=== PATIENT | male | born 1955 ===

== ENCOUNTER 2017-10-02 06:11 | Day surgery (SDC) | payer MEDICAID ==
--- NOTE | 2017-09-30 12:27 | Pre-Procedure Note/Attestation ---
Pre-Procedure Note/Attestation Complete Prior to Procedure Planned Procedure: right Procedure Narrative: phacpo with IOL, OD Indications for Procedure Pre-Operative Diagnosis: cataract Attestation I attest that I discussed the nature of the procedure; its benefits; risks and complications; and alternatives (and the risks and benefits of such alternatives ), prior to the procedure, with the patient (or the patient's legal customer contact representative). I attest that, if there was a reasonable possibility of needing a blood transfusion, the patient (or the patient's legal customer contact representative) was given the [facility] standardized written summary, pursuant to the Stef Esvin Blood Safety Act ([place] Health and Safety Code # 1645, as amended). I attest that I re-evaluated the patient just prior to the surgery and that there has been no change in the patient's H&P, except as documented below: RASHAAD LUCERO Sep 30, 2017 12:27
--- NOTE | 2017-09-30 12:29 | Opthalmology H&P ---
Ophthalmology H&P H&P Chief Complaint: decreased vision in right eye HPI Vision Affects Ability to: read, focus/use eyes together HPI Narrative blurry vision Exam Visual Acuity: OD: 20/200 OS: 2/200 Tension: OD: 13 OS: 13 Eye Exam: normal OU: external exam, palpebral fissure-width, marginal reflex distance, levator function, corneas, anterior chambers, findings: lens - cortical OU, fundus exam - npdr with ME Assessment/Plan Diagnosis: (1) Cataract Treatment Plan: cataract extraction w/ lens implant Goals of Treatment: improvement of vision, enhance quality of life Attestation Attestation The risks and benefits of the surgery as well as alternative procedures were explained to the patient in detail. RASHAAD LUCERO Sep 30, 2017 12:28
[~2017-10-02] VITALS: Ht 162.6 cm; Wt 65.8 kg
[2017-10-02] VITALS (8 sets, daily range): BP systolic 124–139; BP diastolic 81–90
[2017-10-02] MEDS ORDERED: Lidocaine 4% Amp ONE (06:35)
[2017-10-02] MEDS ORDERED: Povidone-Iodine 5% opth solution ONE (06:35)
[2017-10-02] MEDS ORDERED: EPINEPHrine 1mg/1ml Amp ONE ×2 (06:35→07:30)
[2017-10-02] MEDS ORDERED: Pilocarpine 2% Opth 15ml Soln ONE (06:36)
[2017-10-02] MEDS ORDERED: BSS 15ml BTL ONE ×2 (06:36→06:37)
[2017-10-02] MEDS ORDERED: Sodium Hyaluronate 14 mg/ml 0.85ml ONE ×2 (06:36→09:43)
[2017-10-02] MEDS ORDERED: Lidocaine 1% MPF 10mg/ml 5ml ONE (06:37)
[2017-10-02] MEDS ORDERED: Bupivacaine 0.75% 30ml vial INJ ONE (06:37)
[2017-10-02] MEDS ORDERED: Carbachol 0.01% Op Soln 1.5ml vial ONE (06:50)
[2017-10-02] MEDS ORDERED: acetaZOLAMIDE 500mg Inj ONE (06:50)
[2017-10-02] MEDS ORDERED: Ketorolac Tromethamine Opth 5ml Soln RIGHT EYE SCH (07:00)
[2017-10-02] MEDS ORDERED: Akten 3.5% 1ml Btl RIGHT EYE ONE (07:00)
[2017-10-02] MEDS: Tobramycin Op Soln 0.3% 5ml RIGHT EYE SCH ×3 (07:25→07:43)
[2017-10-02] MEDS: Tropicamide 1% Opth 15ml Soln RIGHT EYE SCH ×3 (07:25→07:43)
[2017-10-02] MEDS: Phenylephrine 10% Opth Soln 5ml RIGHT EYE SCH ×3 (07:25→07:43)
[2017-10-02] MEDS: Cyclopentolate 1% Opth Sol 2ml RIGHT EYE SCH ×3 (07:25→07:42)
[2017-10-02] MEDS ORDERED: Dexamethasone 4mg/ml vial ONE (07:30)
[2017-10-02] MEDS ORDERED: fentaNYL 100 mcg/2 mL IV ONE (07:30)
[2017-10-02] MEDS ORDERED: Propofol 200mg/20ml IV ONE (07:30)
[2017-10-02] MEDS ORDERED: Midazolam 2mg/2ml Inj ONE (07:30)
[2017-10-02] MEDS ORDERED: BSS 500ml btl ONE (07:30)
[2017-10-02] MEDS ORDERED: Maxitrol Opth Oint 3.5gm ONE (07:30)
[2017-10-02] MEDS ORDERED: Sterile Water Irrig 1000ml IRRIG ONE (07:30)
[2017-10-02] MEDS ORDERED: LR 1000ml ONE (07:30)
[2017-10-02] MEDS ORDERED: Pred Forte 1% Opth Susp 1ml ONE (07:30)
[2017-10-02] MEDS ORDERED: NS Irrig 1000ml ONE (07:30)
[2017-10-02] MEDS ORDERED: ASPIRIN-LOW81 MG ORAL (07:32)
[2017-10-02] MEDS ORDERED: OMEPRAZOLE20 M3 ORAL (07:39)
[2017-10-02] MEDS ORDERED: GABAPENTIN300 MG ORAL (07:39)
[2017-10-02] MEDS ORDERED: SIMVASTATIN20 MG ORAL (07:39)
[2017-10-02] MEDS ORDERED: TOUJEO SOL300 UNIT/1 SQ (07:39)
[2017-10-02] MEDS ORDERED: LISINOPRIL2.5 MG ORAL (07:39)
[2017-10-02] MEDS ORDERED: LR 1000ml 1,000 ML IVLG SCH (08:21)
--- NOTE | 2017-10-02 08:24 | Anethesia Preoperative Eval ---
Anesthesia Pre-op PMH/ROS General Date of Evaluation: Oct 02, 2017 Time of Evaluation: 07:30 Anesthesiologist: darling ASA Score: ASA 2 Mallampati Score Class I : Soft palate, uvula, fauces, pillars visible Class II: Soft palate, uvula, fauces visible Class III: Soft palate, base of uvula visible Class IV: Only hard plate visible Mallampati Classification: Class II Surgeon: Buffy Diagnosis: Right Cataract Surgical Procedure: Extraction IOL Anesthesia History: none Family History: no anesthesia problems Allergies: Coded Allergies: No Known Allergies (Unverified , 09/30/17) Medications: see eMAR Anesthesia Pre-op Phys. Exam Physician Exam Last Vital Signs Date Time Temp Pulse Resp B/P (MAP) Pulse Ox O2 Delivery O2 Flow Rate FiO2 10/02/17 07:49 98.1 85 20 139/89 98 Room Air Constitutional: NAD Neurologic: CN 2-12 intact Cardiovascular: RRR Respiratory: CTA Gastrointestinal: S/NT/ND Airway Exam Mallampati Score: Class II MO: full ROM: full Teeth: intact Anesthesia Pre-op A/P Risk Assessment & Plan Plan: GA Status Change Before Surgery: No Pre-Antibiotics Given Within 1 Hr of Incision: Kwan Mo M.D. Oct 02, 2017 08:24
--- NOTE | 2017-10-02 08:25 | Immediate Post-Op Evaluation ---
Immediate Post-Op Evalulation Immediate Post-Op Evalulation Procedure: ight Eye Cataact Exraction + IOL Date of Evaluation: Oct 02, 2017 Time of Evaluation: 09:00 IV Fluids: 500 Blood Products: 0 Estimated Blood Loss: 0 Urinary Output: 0 Blood Pressure Systolic: 134 Blood Pressure Diastolic: 88 Pulse Rate: 80 Respiratory Rate: 16 O2 Sat by Pulse Oximetry: 99 Temperature (Fahrenheit): 98 Pain Score (1-10): 0 Nausea: No Vomiting: No Patient Status: awake, patent Hydration Status: adequate Given Within 1 Hr of Incision: Kwan Mo M.D. Oct 02, 2017 08:25
[2017-10-02] MEDS ORDERED: DiphenhydrAMINE 50mg/ml Inj IVP PRN (08:30)
[2017-10-02] MEDS ORDERED: Morphine Sulfate 2mg/ml Inj IVP PRN (08:30)
[2017-10-02] MEDS ORDERED: fentaNYL 100 mcg/2 mL IV PRN (08:30)
[2017-10-02] MEDS ORDERED: Midazolam 2mg/2ml Inj IVP PRN (08:30)
[2017-10-02] MEDS ORDERED: Hydromorphone 0.5mg/0.5ml inj IVP PRN (08:30)
[2017-10-02] MEDS ORDERED: Ketorolac 30mg Inj IV PRN (08:30)
[2017-10-02] MEDS ORDERED: Metoclopramide 10mg/2ml Inj IVP PRN (08:30)
--- NOTE | 2017-10-03 09:55 | Brief Operative Note ---
Immediate Post Operative Note Operative Note Chief Complaint: blurry vision Pre-op Diagnosis: cataract, OD Procedure: phaco withn ioL, od Post-op Diagnosis: pSEUDOPHKIA Post-op Diagnosis: same as pre-op Findings: consistent w/pre-op dx studies Surgeon: NIC Anesthesiologist: Parish Anesthesia: MAC Specimen: none Complications: none Condition: stable Fluids: LR Estimated Blood Loss: none Drains: none Implant(s) used?: Yes RASHAAD LUCERO Oct 03, 2017 09:55
--- NOTE | 2017-10-03 09:57 | Operative Note - PDOC ---
Operative Note Operative Note Date of Operation/Procedure: Oct 02, 2017 Chief Complaint: blurry vision Pre-op Diagnosis: cataract, OD Procedure: phaco withn ioL, od Post-op Diagnosis: pSEUDOPHKIA Post-op Diagnosis: same as pre-op Operative Findings: consistent w/pre-op dx studies Surgeon: NIC Anesthesiologist: Parish Anesthesia: MAC Specimen: none Complications: none Condition: stable Fluids: LR Estimated Blood Loss: none Drains: none Implant(s) used?: Yes Indications for Procedure cataract Description of Procedure This patient has been complaining visually significant cataract in the affected eye with the best corrected visual acuity under moderate glare conditions worse. The patient complains of difficulties with glare in performing activities of daily living and wants to manage personal affairs with comfort and accuracy and see well enough to move with safety at home and outdoors. The risks, benefits and alternatives of the procedure were discussed with the patient in the office prior to scheduling surgery. All questions from the patient were answered after the surgical procedure was explained in detail. The risks of the procedure as explained to the patient include, but are not limited to, pain, infection, bleeding, loss of vision, retinal detachment, need for further surgery, loss of lens nucleus, double vision, etc. Alternative procedures were discussed which include, to do nothing or seek a second opinion. Informed consent for this procedure was obtained from the patient. The patient was referred to a primary care physician for a cardiopulmonary clearance prior to surgery, after proper evaluation was done patient was properly scheduled for outpatient surgery. The patient was brought to the operating room where the anesthesiologist established I.V. lines and cardiac monitoring leads. Mild intravenous sedation was administered. The patient was then prepared with a 5% solution of povidone -iodine to the conjunctival fornix and lashes, and a 5% solution of povidone- iodine to the lids and periorbital skin. The patient was then draped in the usual sterile fashion. A lid speculum was then placed in the operative eye. A keratome blade was then used to create a biplanar incision into the anterior chamber. Viscoelastics was then instilled into the anterior chamber. A capsulorrhexis was then fashioned with an utrata forceps followed by a BSS and a cannula were then used to hydrodissect and hydro delineate the lens. Paracentesis incision was made at 3 o'clock with sharp blade. The phacoemulsification unit, after being properly adjusted and tested, was then used to emulsify the nucleus followed by aspiration with the irrigation of residual corticla material with aspiration unit. Healon was then instilled into the anterior chamber. The corneal wound was then enlarged to the size of the optic with the corazon keratome blade. The intraocular lens was then inspected for right power and size and thought to be satisfactory. Then the lens was gently placed in the capsular bag. Positioning within the capsular bag was confirmed by direct visualization. Optic centration was accomplished with a Sinskey hook. Viscoelastics was removed from the anterior chamber using the irrigation and aspiration unit. The corneal wound was then tested for leaks and none were found. The lid speculum were then removed. Sponge and needle counts were correct. An eye patch and shield were placed over the operative eye. The patient was taken to the recovery room in stable condition. There were no complications. The patient tolerated the procedure well. The patient was then transferred to the ambulatory surgery unit in stable and satisfactory condition , was given detailed written instructions and asked to follow up in the office the next day. Brett WALLACE JAMES Oct 03, 2017 09:57
== END 2017-10-02 09:45 | disposition home or self-care (01) ==
LOC: SUR 06:11
DX: H26.9 Unspecified cataract (principal); I10 Essential (primary) hypertension; I25.10 Atherosclerotic heart disease of native coronary artery without angina pectoris; E11.40 Type 2 diabetes mellitus with diabetic neuropathy, unspecified
CPT/HCPCS: 66984; 82962; J0171; J1100; J2250; J2704; J3010; J3370; J7120; V2632; Z7512; 94003; 94150

== ENCOUNTER 2017-12-12 05:43 | Day surgery (SDC) | payer MEDICAID ==
--- NOTE | 2017-12-11 15:05 | Pre-Procedure Note/Attestation ---
Pre-Procedure Note/Attestation Complete Prior to Procedure Planned Procedure: left Procedure Narrative: phaco with IOL Indications for Procedure Pre-Operative Diagnosis: cataract Attestation I attest that I discussed the nature of the procedure; its benefits; risks and complications; and alternatives (and the risks and benefits of such alternatives ), prior to the procedure, with the patient (or the patient's legal rental sales representative). I attest that, if there was a reasonable possibility of needing a blood transfusion, the patient (or the patient's legal rental sales representative) was given the [facility] standardized written summary, pursuant to the Stef Nowata Blood Safety Act ([place] Health and Safety Code # 1645, as amended). I attest that I re-evaluated the patient just prior to the surgery and that there has been no change in the patient's H&P, except as documented below: RASHAAD LUCERO Dec 11, 2017 15:05
--- NOTE | 2017-12-11 15:09 | Opthalmology H&P ---
Ophthalmology H&P H&P Chief Complaint: decreased vision in left eye HPI Vision Affects Ability to: read, focus/use eyes together, manage personal affairs HPI Narrative blurry vision Exam Visual Acuity: OD: 20/25 OS: CF Tension: OD: 18 OS: 14 Eye Exam: normal OU: external exam, palpebral fissure-width, marginal reflex distance, levator function, corneas, anterior chambers, findings: lens - OD: IOL OS: cortical, fundus exam - NPDR OU Assessment/Plan Diagnosis: (1) Cortical cataract of left eye Treatment Plan: cataract extraction w/ lens implant Goals of Treatment: improvement of vision, enhance quality of life Attestation Attestation The risks and benefits of the surgery as well as alternative procedures were explained to the patient in detail. RASHAAD LUCERO Dec 11, 2017 15:09
[2017-12-12] VITALS (7 sets, daily range): BP systolic 111–155; BP diastolic 75–95
[~2017-12-12] VITALS: Ht 162.6 cm; Wt 64.4 kg
[~2017-12-12 05:43] MED LIST: ASPIRIN-LOW81 MG ORAL; GABAPENTIN300 MG ORAL; LISINOPRIL2.5 MG ORAL; OMEPRAZOLE20 M3 ORAL; SIMVASTATIN20 MG ORAL; TOUJEO SOL300 UNIT/1 SQ
[2017-12-12] MEDS ORDERED: Pred Forte 1% Opth Susp 1ml ONE (07:00)
[2017-12-12] MEDS ORDERED: Dexamethasone 4mg/ml vial ONE (07:00)
[2017-12-12] MEDS ORDERED: Akten 3.5% 1ml Btl LEFT EYE ONE (07:00)
[2017-12-12] MEDS ORDERED: Sterile Water 10ml Vial ONE (07:00)
[2017-12-12] MEDS ORDERED: Proparacaine 0.5% Opth Soln 15ml LEFT EYE ONE (07:00)
[2017-12-12] MEDS ORDERED: BSS 500ml btl ONE (07:00)
[2017-12-12] MEDS ORDERED: Maxitrol Opth Oint 3.5gm ONE (07:00)
[2017-12-12] MEDS ORDERED: Ketorolac Tromethamine Opth 5ml Soln LEFT EYE SCH (07:00)
[2017-12-12] MEDS ORDERED: Tetracaine 0.5% Opth 4ml Soln LEFT EYE ONE (07:00)
[2017-12-12] MEDS ORDERED: EPINEPHrine 1mg/1ml Amp ONE (07:00)
[2017-12-12] MEDS: Tropicamide 1% Opth 15ml Soln LEFT EYE SCH ×3 (07:24→07:40)
[2017-12-12] MEDS: Cyclopentolate 1% Opth Sol 2ml LEFT EYE SCH ×3 (07:24→07:40)
[2017-12-12] MEDS: Phenylephrine 10% Opth Soln 5ml LEFT EYE SCH ×3 (07:25→07:40)
[2017-12-12] MEDS: Tobramycin Op Soln 0.3% 5ml LEFT EYE SCH ×3 (07:25→07:40)
[2017-12-12] MEDS ORDERED: BASAGLAR K100 UNIT/1 SQ (07:31)
--- NOTE | 2017-12-12 09:04 | Anethesia Preoperative Eval ---
Anesthesia Pre-op PMH/ROS General Date of Evaluation: Dec 12, 2017 Time of Evaluation: 10:09 Anesthesiologist: Bridget ASA Score: ASA 2 Mallampati Score Class I : Soft palate, uvula, fauces, pillars visible Class II: Soft palate, uvula, fauces visible Class III: Soft palate, base of uvula visible Class IV: Only hard plate visible Mallampati Classification: Class II Surgeon: Buffy Diagnosis: cataract left eye Surgical Procedure: Left eye cataract removal with IOL Anesthesia History: none Family History: no anesthesia problems Allergies: Coded Allergies: No Known Allergies (Unverified , 09/30/17) Past Medical History Cardiovascular: Reports: HTN, CAD Gastrointestinal/Genitourinary: Reports: GERD Neurologic/Psychiatric: Denies: dementia, CVA, depression/anxiety, TIA, other Endocrine: Reports: DM - BS this am 218 MD aware HEENT: Reports: cataract (L), cataract (R) Musculoskeletal/Integumentary: Reports: OA, other - musculoskeletal disorder Anesthesia Pre-op Phys. Exam Physician Exam Last Vital Signs Date Time Temp Pulse Resp B/P (MAP) Pulse Ox O2 Delivery O2 Flow Rate FiO2 12/12/17 07:28 97.7 74 20 120/81 96 Room Air Constitutional: NAD Neurologic: CN 2-12 intact Cardiovascular: RRR Respiratory: CTA Gastrointestinal: S/NT/ND Airway Exam Mallampati Score: Class II MO: full ROM: full Teeth: missing Dentures: upper, lower - partial dentures upper and lower Anesthesia Pre-op A/P Labs chart reviewed Studies Pre-op Studies: EKG - NSR 71 bpm Risk Assessment & Plan Assessment: A&Ox4 Plan: MAC with general as back up Status Change Before Surgery: No Pre-Antibiotics Given Within 1 Hr of Incision: No Latisha Gill SENIOR TAX SPECIALIST Dec 12, 2017 09:04
--- NOTE | 2017-12-12 09:05 | Immediate Post-Op Evaluation ---
Immediate Post-Op Evalulation Immediate Post-Op Evalulation Procedure: Left eye cataract removal with IOL Date of Evaluation: Dec 12, 2017 Time of Evaluation: 11:17 IV Fluids: LR 400 ml Blood Products: 0 Estimated Blood Loss: less than 5 ml Urinary Output: 0 Blood Pressure Systolic: 155 Blood Pressure Diastolic: 95 Pulse Rate: 79 Respiratory Rate: 18 O2 Sat by Pulse Oximetry: 99 Temperature (Fahrenheit): 98.6 Pain Score (1-10): 0 Nausea: No Vomiting: No Complications none Patient Status: awake, reacts Hydration Status: adequate Given Within 1 Hr of Incision: Latisha Lares CRNA Dec 12, 2017 09:05
[2017-12-12] MEDS ORDERED: fentaNYL 100 mcg/2 mL IV ONE (10:00)
[2017-12-12] MEDS ORDERED: LR 1000ml ONE (10:00)
[2017-12-12] MEDS ORDERED: Midazolam 2mg/2ml Inj ONE (10:00)
[2017-12-12] MEDS ORDERED: NS Irrig 1000ml ONE (10:00)
[2017-12-12] MEDS ORDERED: Sterile Water Irrig 1000ml IRRIG ONE (10:00)
--- NOTE | 2017-12-12 12:01 | 48 Hour Post Anesthesia Eval ---
Post Anesthesia Evaluation Procedure: Left eye cataract removal with IOL Date of Evaluation: Dec 12, 2017 Time of Evaluation: 11:25 Blood Pressure Systolic: 155 0: 92 Pulse Rate: 79 Respiratory Rate: 20 Temperature (Fahrenheit): 98.6 O2 Sat by Pulse Oximetry: 99 Airway: patent Nausea: No Vomiting: No Hydration Status: adequate Mental Status/LOC: patient returned to baseline Follow-up care needed: patient intructions given Latisha Gill CRNA Dec 12, 2017 12:01
[2017-12-12] MEDS ORDERED: BSS 15ml BTL ONE (13:49)
[2017-12-12] MEDS ORDERED: Sodium Hyaluronate 10 mg/ml 0.85ml ONE (13:50)
--- NOTE | 2017-12-15 09:03 | Brief Operative Note ---
Immediate Post Operative Note Operative Note Chief Complaint: blurry vision Pre-op Diagnosis: cataract, OD Procedure: phaco with IOL, OD Post-op Diagnosis: Pseudophakia Post-op Diagnosis: same as pre-op Findings: consistent w/pre-op dx studies Surgeon: Buffy Anesthesiologist: Bridget Anesthesia: MAC Specimen: none Complications: none Condition: stable Fluids: LR Estimated Blood Loss: none Drains: none Implant(s) used?: Yes RASHAAD LUCERO Dec 15, 2017 09:03
--- NOTE | 2017-12-15 09:04 | Operative Note - PDOC ---
Operative Note Operative Note Date of Operation/Procedure: Dec 12, 2017 Chief Complaint: blurry vision Pre-op Diagnosis: cataract, OD Procedure: phaco with IOL, OD Post-op Diagnosis: Pseudophakia Post-op Diagnosis: same as pre-op Operative Findings: consistent w/pre-op dx studies Surgeon: Buffy Anesthesiologist: Bridget Anesthesia: MAC Specimen: none Complications: none Condition: stable Fluids: LR Estimated Blood Loss: none Drains: none Implant(s) used?: Yes Indications for Procedure cataract Description of Procedure This patient has been complaining visually significant cataract in the affected eye with the best corrected visual acuity under moderate glare conditions worse. The patient complains of difficulties with glare in performing activities of daily living and wants to manage personal affairs with comfort and accuracy and see well enough to move with safety at home and outdoors. The risks, benefits and alternatives of the procedure were discussed with the patient in the office prior to scheduling surgery. All questions from the patient were answered after the surgical procedure was explained in detail. The risks of the procedure as explained to the patient include, but are not limited to, pain, infection, bleeding, loss of vision, retinal detachment, need for further surgery, loss of lens nucleus, double vision, etc. Alternative procedures were discussed which include, to do nothing or seek a second opinion. Informed consent for this procedure was obtained from the patient. The patient was referred to a primary care physician for a cardiopulmonary clearance prior to surgery, after proper evaluation was done patient was properly scheduled for outpatient surgery. The patient was brought to the operating room where the anesthesiologist established I.V. lines and cardiac monitoring leads. Mild intravenous sedation was administered. The patient was then prepared with a 5% solution of povidone -iodine to the conjunctival fornix and lashes, and a 5% solution of povidone- iodine to the lids and periorbital skin. The patient was then draped in the usual sterile fashion. A lid speculum was then placed in the operative eye. A keratome blade was then used to create a biplanar incision into the anterior chamber. Viscoelastics was then instilled into the anterior chamber. A capsulorrhexis was then fashioned with an utrata forceps. BSS and a cannula were then used to hydrodissect and hydro delineate the lens. Paracentesis incision was made at 3 o'clock with sharp blade. The phacoemulsification unit, after being properly adjusted and tested, was then used to emulsify the nucleus , followed by irrigation and aspiration of residual cortical material with I and A unit. Healon was then instilled into the anterior chamber. The corneal wound was then enlarged to the size of the optic with the corazon keratome blade. The intraocular lens was then inspected for right power and size and thought to be satisfactory. Then the lens was gently placed in the capsular bag. Positioning within the capsular bag was confirmed by direct visualization. Optic centration was accomplished with a Sinskey hook. Viscoelastics was removed from the anterior chamber using the irrigation and aspiration unit. The corneal wound was then tested for leaks and none were found. The lid speculum were then removed. Sponge and needle counts were correct. An eye patch and shield were placed over the operative eye. The patient was taken to the recovery room in stable condition. There were no complications. The patient tolerated the procedure well. The patient was then transferred to the ambulatory surgery unit in stable and satisfactory condition , was given detailed written instructions and asked to follow up in the office the next day. RASHAAD LUCERO Dec 15, 2017 09:04
== END 2017-12-12 12:40 | disposition home or self-care (01) ==
LOC: SUR 05:43
DX: H25.012 Cortical age-related cataract, left eye (principal); Z79.82 Long term (current) use of aspirin; I11.0 Hypertensive heart disease with heart failure; K21.9 Gastro-esophageal reflux disease without esophagitis; E11.9 Type 2 diabetes mellitus without complications; M19.90 Unspecified osteoarthritis, unspecified site
CPT/HCPCS: 66984; 82962; J0171; J1100; J2250; J3010; J3370; J7120; V2632; Z7512; 94003; 94150; A4216